=== PATIENT | female | born 1965 | race African-American/Black ===

== ENCOUNTER 2017-11-21 15:38 | Emergency (ER) | payer MEDICAID ==
[~2017-11-21] VITALS: Ht 172.7 cm; Wt 93.4 kg
[~2017-11-21 15:38] MED LIST: ATARAX25 MG ORAL; BACTRIM DS TAB1 EAC1 ORAL; BACTROBAN NASAL1 GM NASAL; BENTYL10 MG ORAL; CLINDAMYCIN HC300 MG ORAL; CYCLOBENZAPRINE10 MG ORAL; DIAZEPAM10 MG ORAL; GABAPENTIN600 MG ORAL; IBUPROFEN600 MG ORAL; IBUPROFEN600 MG PO; NKM; NORCO 5-325 TA1 EACH PO; SIMETHICONE80 MG ORAL; SOMA350 MG PO; UNOBMED; VIBRAMYCIN100 MG ORAL
[2017-11-21 16:54] VITALS: BP 120/76
[2017-11-21] MEDS ORDERED: TYLENOL EXTRA500 MG ORAL (16:58)
--- NOTE | 2017-11-21 16:58 | Emergency Room Report ---
History of Present Illness General Chief Complaint: Pain Source: Patient Present Illness HPI 52 y.o. F with hx of smoking, HTN, here c/o few weeks of bilateral leg pain and cramping. pt mentions pain is sharp, 5/10 at night when sleeping and when walking, no radiation, no tingling/numbness. denies injury, recent travel, sedentary lifestyle, recent surgery, cardiac dz. pt is a heavy tobacco smoker. has been taking tylenol with some improvement. denies palpitation ,sob cp. Allergies: Coded Allergies: PENICILLINS (Verified Allergy, Unknown, 11/14/13) Patient History Past Medical History: see triage record Past Surgical History: none Pertinent Family History: none Now: No Immunizations: UTD Reviewed Nursing Documentation: PMH: Agreed; PSxH: Agreed Nursing Documentation-PMH Past Medical History: No History, Except For Hx Cardiac Problems: No - HX BOILS, Torn right rotator cuff Review of Systems All Other Systems: negative except mentioned in HPI Physical Exam Vital Signs Date Time Temp Pulse Resp B/P (MAP) Pulse Ox O2 Delivery O2 Flow Rate FiO2 11/21/17 15:45 97.4 79 24 120/76 96 Room Air 97.3 Sp02 EP Interpretation: reviewed, normal General Appearance: normal inspection, well appearing, no apparent distress, alert, GCS 15 Eyes: bilateral eye normal inspection, bilateral eye PERRL ENT: normal ENT inspection Neck: normal inspection, full range of motion, supple Respiratory: normal inspection, chest non-tender, lungs clear, normal breath sounds, no rhonchi, no respiratory distress Cardiovascular #1: normal inspection, normal peripheral pulses, regular rate, rhythm, no edema, no gallop, no JVD, no murmur, no rub Cardiovascular #2: 2+ radial (R), 2+ radial (L), 2+ dorsalis pedis (R), 2+ dorsalis pedis (L) Gastrointestinal: normal inspection, normal bowel sounds, non tender, soft Rectal: deferred Genitourinary: deferred Musculoskeletal: back normal, gait/station normal, normal range of motion, non- tender, no calf tenderness, pelvis stable, swelling - bilateral calf, other - thinning of skin and hardening of nails on both feet Neurologic: normal inspection, alert, oriented x3, responsive Psychiatric: normal inspection, judgement/insight normal, memory normal Skin: normal inspection, normal color, no rash, warm/dry, other - no cyonosis and no palor of feet Lymphatic: normal inspection, no adenopathy Medical Decision Making PA Attestation all orders, dx, tx plans reviewed and discussed with my supervising physician Dr. Coker Diagnostic Impression: Primary Impression: Venous (peripheral) insufficiency Additional Impression: Leg swelling ER Course 52 y.o. F with hx of smoking, HTN, here c/o few weeks of bilateral leg pain and cramping. pt mentions pain is sharp, 5/10 at night when sleeping and when walking, no radiation, no tingling/numbness. denies injury, recent travel, sedentary lifestyle, recent surgery, cardiac dz. pt is a heavy tobacco smoker. has been taking tylenol with some improvement. denies palpitation ,sob cp. Ddx considered but are not limited to venous insufficiency, PAD ,DVT Vital signs: are WNL, pt. is afebrile H&PE are most consistent with venous insufficiency ORDERS: tylenol 500mg bid prn ED INTERVENTIONS: None required at this time. Last Vital Signs Date Time Temp Pulse Resp B/P (MAP) Pulse Ox O2 Delivery O2 Flow Rate FiO2 11/21/17 15:45 97.4 79 24 120/76 96 Room Air 97.3 Disposition: HOME, SELF-CARE Condition: Stable Scripts Acetaminophen* (TYLENOL EXTRA STRENGTH*) 500 Mg Tablet 500 MG ORAL Q12HR PRN for Mild Pain/Temp > 100.5 for 10 Days, #20 TAB 0 Refills Prov: Ed Archuleta 11/21/17 Patient Instructions: Leg Cramps, Venous Stasis or Chronic Venous Insufficiency Additional Instructions: follow up with pcp for cardiovascular referral, elevate legs at night, avoid standing on feet and sitting for long hours. wear compression stockings, since pt is a smoker, rule out PAD by pcp. condition is chronic, no sign of DVT. since NSAIDS cause pt distress, continue taking tylenol prn pain. Ed Archuleta Nov 21, 2017 16:58
[2017-11-21 17:01] VITALS: BP 120/76
== END 2017-11-21 17:01 | disposition home or self-care (01) ==
LOC: EMR 16:00
DX: I87.2 Venous insufficiency (chronic) (peripheral) (principal); M79.89 Other specified soft tissue disorders; Z88.0 Allergy status to penicillin
CPT/HCPCS: 99283

== ENCOUNTER 2018-02-01 13:07 | Emergency (ER) | payer MEDICAID ==
[~2018-02-01] VITALS: Ht 172.7 cm; Wt 90.7 kg
[~2018-02-01 13:07] MED LIST changes: +TYLENOL EXTRA500 MG ORAL
[2018-02-01 13:11] VITALS: BP 101/61
--- NOTE | 2018-02-01 13:52 | Emergency Room Report ---
History of Present Illness General Chief Complaint: Skin Rash/Abscess Source: Patient, Medical Record Present Illness HPI 52-year-old female presents to emergency Department complaining of progressive darkening of her face 1 week. Patient reports that her friends told her that she was getting dark rash and she did not notice. Patient reports that later in the evening she looked in the mere and saw some dark brown spots across her forehead and under both eyes. Patient denies nasal congestion, sneezing, rhinorrhea or difficulty breathing. Patient states that she has been out in the sun quite a bit lately. Pt. denies fevers, chills or swollen tender lymph nodes. Denies lesions/rashes elsewhere on the body. Denies new medications or body washes or creams. Denies swelling of the lips, tongue , throat or airway. Denies wheezing, or shortness of breath. Denies recent travel, recent illness or ill contacts. denies blisters, oral lesions, or sloughing of the skin. Denies joint pain or hx of autoimmune disorders. denies eczema hx. Allergies: Coded Allergies: PENICILLINS (Verified Allergy, Unknown, 11/14/13) Patient History Past Medical History: see triage record Past Surgical History: none Pertinent Family History: none Last Menstrual Period: menopause Now: No Reviewed Nursing Documentation: PMH: Agreed; PSxH: Agreed Nursing Documentation-PMH Past Medical History: No History, Except For Hx Cardiac Problems: No - HX BOILS, Torn right rotator cuff Review of Systems All Other Systems: negative except mentioned in HPI Physical Exam Vital Signs Date Time Temp Pulse Resp B/P (MAP) Pulse Ox O2 Delivery O2 Flow Rate FiO2 02/01/18 13:10 98.1 84 18 101/61 95 Room Air 98.1 Sp02 EP Interpretation: reviewed, normal General Appearance: no apparent distress, alert, GCS 15, non-toxic Head: normocephalic, atraumatic Eyes: bilateral eye normal inspection, bilateral eye PERRL ENT: hearing grossly normal, normal pharynx, no angioedema, normal voice Neck: full range of motion Respiratory: chest non-tender, lungs clear, normal breath sounds, speaking full sentences Cardiovascular #1: regular rate, rhythm, no edema Musculoskeletal: back normal, gait/station normal, normal range of motion, non- tender Neurologic: alert, oriented x3, responsive, motor strength/tone normal, sensory intact, speech normal, grossly normal Psychiatric: judgement/insight normal Skin: normal color, warm/dry, well hydrated, rash - hyperpigmented plaques to the bilateral cheebones and across the foreheac. no swelling or increased temperature to palpation. there is an infected hair follicle under the left eyebrow erythema and induratin with pustule noted. Lymphatic: no adenopathy Medical Decision Making PA Attestation Dr. Crockett is my supervising Physician whom patient management has been discussed with. Diagnostic Impression: Primary Impression: Hyperpigmentation of skin Additional Impressions: Furuncle of face Rash and other nonspecific skin eruption Melasma ER Course 52-year-old female presents to emergency Department complaining of progressive darkening of her face 1 week. Patient reports that her friends told her that she was getting dark rash and she did not notice. Patient reports that later in the evening she looked in the mere and saw some dark brown spots across her forehead and under both eyes. Patient denies nasal congestion, sneezing, rhinorrhea or difficulty breathing. Patient states that she has been out in the sun quite a bit lately. Pt. denies fevers, chills or swollen tender lymph nodes. Denies lesions/rashes elsewhere on the body. Denies new medications or body washes or creams. Denies swelling of the lips, tongue , throat or airway. Denies wheezing, or shortness of breath. Denies recent travel, recent illness or ill contacts. denies blisters, oral lesions, or sloughing of the skin. Denies joint pain or hx of autoimmune disorders. denies eczema hx. Ddx considered but are not limited to cellulitis, scabies, shingles, varicella, dermatitis, urticaria, eczema, tinea, viral exanthem, SJS Vital signs: are WNL, pt. is afebrile H&PE are most consistent with Melasma hyperpigmented type rash, no swelling or increased temperature to palpation. Pt. does have an infected hair follicle under the left eyebrow. ORDERS: none required at this time, the diagnosis is clinical ED INTERVENTIONS: None required at this time. DISCHARGE: At this time pt. is stable for d/c to home. Will provide printed patient care instructions, and any necessary prescriptions. Care plan and follow up instructions have been discussed with the patient prior to discharge. Last Vital Signs Date Time Temp Pulse Resp B/P (MAP) Pulse Ox O2 Delivery O2 Flow Rate FiO2 02/01/18 13:11 98.1 84 18 101/61 95 Room Air 98.1 Disposition: HOME, SELF-CARE Condition: Stable Scripts Cephalexin* (KEFLEX*) 500 Mg Capsule 500 MG ORAL EVERY 12 HOURS for 7 Days, #14 CAP 0 Refills Prov: Sharita Hoang 02/01/18 Hydrocortisone (Hydrocortisone Cream 2.5%) Y Cream.appl 1 APPLIC TP BID, #28.5 GM 2 Refills Prov: Sharita Hoang 02/01/18 Referrals: NON PHYSICIAN (PCP) Patient Instructions: Melasma Additional Instructions: Take medications as directed. Follow up with a Primary Care Provider in 3-5 days for DERMATOLOGY REFERRAL , even if your symptoms have resolved. --Please review list of primary care clinics, if you do not already have a primary care provider Return sooner to ED if new symptoms occur, or current symptoms become worse. - Please note that this Emergency Department Report was dictated using [employer] manager technology software, occasionally this can lead to erroneous entry secondary to interpretation by the dictation equipment. Sharita Hoang Feb 01, 2018 13:52
[2018-02-01] MEDS ORDERED: HYDROCORTISONE30 G2 TP (13:54)
[2018-02-01] MEDS ORDERED: CEPHALEXIN500 MG ORAL (13:54)
[2018-02-01 13:59] VITALS: BP 111/74
== END 2018-02-01 14:00 | disposition home or self-care (01) ==
LOC: EMR 13:30
DX: L02.02 Furuncle of face (principal); L81.1 Chloasma; L81.8 Other specified disorders of pigmentation; Z88.0 Allergy status to penicillin
CPT/HCPCS: 99283

== ENCOUNTER 2018-06-20 23:25 | Emergency (ER) | payer MEDICAID ==
[~2018-06-20] VITALS: Ht 172.7 cm; Wt 94.8 kg
[~2018-06-20 23:25] MED LIST changes: +CEPHALEXIN500 MG ORAL; +HYDROCORTISONE30 G2 TP
[2018-06-20 23:36] VITALS: BP 132/79
[2018-06-20] MEDS ORDERED: Albuterol ud Inhalation HHN ONE (23:45)
[2018-06-20] MEDS ORDERED: Ipratropium 0.02% Inh Soln 2.5ml UD HHN ONE (23:45)
[2018-06-21] MEDS ORDERED: ZITHROMAX250 MG ORAL (00:06)
[2018-06-21] MEDS ORDERED: ALBUTEROL SULF8.5 GM INH (00:06)
[2018-06-21] MEDS ORDERED: PSEUDOEPHEDRINE60 MG PO (00:06)
[2018-06-21] MEDS ORDERED: PREDNISONE20 MG ORAL (00:06)
--- NOTE | 2018-06-21 00:07 | Emergency Room Report ---
History of Present Illness General Chief Complaint: Flu Like Symptoms Source: Patient Present Illness HPI This is a 53-year-old female who is a smoker. She presents with chief complaint of coughing and flulike illness. Onset for last to 3 days. Still able to smoke. Now with right ear pain. No nausea no vomiting. Worse with smoking. Worse with lying flat. Better with sitting up. Denies any other complaint. No chest pain. Allergies: Coded Allergies: PENICILLINS (Verified Allergy, Unknown, 11/14/13) Patient History Past Medical History: see triage record, old chart reviewed Past Surgical History: other Pertinent Family History: none Social History: Reports: smoking Last Menstrual Period: NA Now: No : 10 Para: 5 Immunizations: other Reviewed Nursing Documentation: PMH: Agreed; PSxH: Agreed Nursing Documentation-PMH Past Medical History: No Stated History Hx Cardiac Problems: No - HX BOILS, Torn right rotator cuff Review of Systems Eye: Denies: eye pain, blurred vision ENT: Reports: ear pain, nose congestion; Denies: throat swelling Respiratory: Reports: cough, shortness of breath Cardiovascular: Denies: chest pain, palpitations Gastrointestinal: Denies: abdominal pain, diarrhea, nausea, vomiting Musculoskeletal: Denies: back pain, joint pain Skin: Denies: rash Neurological: Denies: headache, numbness Endocrine: Denies: increased thirst, increased urine Hematologic/Lymphatic: Denies: easy bruising All Other Systems: negative except mentioned in HPI Physical Exam Vital Signs Date Time Temp Pulse Resp B/P (MAP) Pulse Ox O2 Delivery O2 Flow Rate FiO2 06/20/18 23:27 98.1 88 16 132/79 98 Room Air 06/20/18 23:45 21 vitals normal Sp02 EP Interpretation: reviewed, normal General Appearance: well appearing, no apparent distress, alert Head: normocephalic, atraumatic Eyes: bilateral eye PERRL, bilateral eye EOMI ENT: hearing grossly normal, normal pharynx, other - Right TM is erythematous. Neck: full range of motion, supple, no meningismus Respiratory: chest non-tender, wheezing Cardiovascular #1: regular rate, rhythm, no murmur Gastrointestinal: normal bowel sounds, non tender, no mass, no organomegaly, no bruit, non-distended Musculoskeletal: back normal, gait/station normal, normal range of motion Psychiatric: mood/affect normal Skin: warm/dry Medical Decision Making Diagnostic Impression: Primary Impression: Right otitis media Qualified Codes: H66.91 - Otitis media, unspecified, right ear Additional Impressions: COPD without exacerbation URI (upper respiratory infection) Qualified Codes: J06.9 - Acute upper respiratory infection, unspecified ER Course Patient with a viral upper rest or infection with wheezing. No evidence of ACS , PE, dissection. We'll put on antibiotics for otitis media. Better after breathing treatment. Advised patient to stop smoking. Last Vital Signs Date Time Temp Pulse Resp B/P (MAP) Pulse Ox O2 Delivery O2 Flow Rate FiO2 06/21/18 00:02 91 20 100 Room Air 21 06/20/18 23:36 98.1 132/79 Status: improved Disposition: HOME, SELF-CARE Condition: Stable Scripts Azithromycin* (ZITHROMAX*) 250 Mg Tablet 250 MG ORAL DAILY, #6 TAB 0 Refills Take two tables once daily for 1 day, then one tablet once daily for 4 days. Prov: Fito Ragland MD 06/21/18 Pseudoephedrine Hcl* (SUDAFED*) 60 Mg Tablet 60 MG PO Q6H, #20 TAB Prov: Fito Ragland MD 06/21/18 Prednisone* (PREDNISONE*) 20 Mg Tablet 40 MG ORAL DAILY, #8 TAB Prov: Fito Ragland MD 06/21/18 Albuterol Sulfate* (ALBUTEROL SULFATE MDI*) 8.5 Gm Hfa.aer.ad 2 PUFF INH Q4H PRN for cough/wheezing, #1 EA 0 Refills Prov: Fito Ragland MD 06/21/18 Additional Instructions: Stop smoking. Increase fluids. Follow-up with your doctor in 7 days. Return if worse. Fito Ragland MD Jun 21, 2018 00:07
[2018-06-21 00:10] VITALS: BP 125/82
== END 2018-06-21 00:10 | disposition home or self-care (01) ==
LOC: EMR 23:40
DX: H66.91 Otitis media, unspecified, right ear (principal); J44.1 Chronic obstructive pulmonary disease with (acute) exacerbation; J06.9 Acute upper respiratory infection, unspecified
CPT/HCPCS: 94640; 94664; 99284; J7512